=== PATIENT | male | born 1955 | race African-American/Black ===

== ENCOUNTER 2018-06-12 07:32 | Day surgery (SDC) | payer MEDICARE, MEDICAID ==
[~2018-06-12] VITALS: Ht 191.8 cm; Wt 140.6 kg
[~2018-06-12 07:32] MED LIST: ATOR10TA69 PO; LISI10TA5 PO; METF10004 PO; SITA100T11 PO
[2018-06-12] MEDS ORDERED: FENTANYL CITRATE/PF 50MCG/ML 2ML VIAL ONE ×2 (09:57→10:19)
[2018-06-12] MEDS ORDERED: MIDAZOLAM HCL 2 MG/2 ML VIAL ONE (09:57)
[2018-06-12] MEDS ORDERED: PROPOFOL 200MG/20ML VIAL IV ONE ×2 (09:57→10:59)
[2018-06-12] MEDS ORDERED: BACITRACIN ZINC 15GM TUBE TOP ONE (10:00)
[2018-06-12] MEDS ORDERED: HYDROMORPHONE HCL/PF 2MG/ML CPJ IV PRN (11:30)
[2018-06-12] MEDS ORDERED: LABETALOL 5MG/ML SYR 20 MG/4 ML SYRINGE IV PRN (11:30)
[2018-06-12] MEDS ORDERED: ONDANSETRON HCL 4MG/2ML INJ IV PRN (11:30)
[2018-06-12] MEDS ORDERED: MEPERIDINE HCL/PF 25MG/ML CPJ IV PRN (11:30)
== END 2018-06-12 12:45 | disposition home or self-care (01) ==
LOC: OR 07:32
PROVIDERS: ATTEND Urology
DX: N47.1 Phimosis (principal); E11.9 Type 2 diabetes mellitus without complications; E78.00 Pure hypercholesterolemia, unspecified; I10 Essential (primary) hypertension; Z98.890 Other specified postprocedural states; Z79.899 Other long term (current) drug therapy
CPT/HCPCS: 54161; 82962; 88304; J2250; J3010; J7030; J7040; J2704

== ENCOUNTER 2020-06-26 19:54 | Inpatient (IN) | payer MEDICARE, MEDICAID ==
[~2020-06-26] VITALS: Ht 190.5 cm; Wt 136.1 kg
[~2020-06-26 19:54] MED LIST changes: +METF-416 PO; -METF10004 PO
[2020-06-26 21:13] LABS: BG CARBOXYHEMOGLOBIN 0.3 % (0.5-1.5); BG DEOXYHEMOGLOBIN 2.8 % (0.0-5.0); BG FRACTION INSPIRED OXYGEN 21; BG HCO3 ACT 10.4 mmol/L (22.0-26.0); BG METHEMOGLOBIN 0.2 % (0.0-1.5); BG OXYGEN SATURATION 97.2 % (92.0-98.5); BG OXYHEMOGLOBIN 96.7 % (94.0-97.0); BG PCO2 26.8 mmHg (35.0-45.0); BG PH 7.208 (7.350-7.450); BG PO2 105.3 mmHg (75.0-100.0); BG SAMPLE SITE RIGHT RADIAL; BG TOTAL HEMOGLOBIN 11.2 g/dL (12.0-18.0); BG VENT MODE ROOM AIR
[2020-06-26] MEDS ORDERED: SODIUM CHLORIDE 0.9% 1,000 ML IV ONE (21:45)
[2020-06-26 21:58] LABS: BASOPHILS % 0.6 % (0.0-2.0); EOSINOPHILS % 2.1 % (0.0-5.0); HEMATOCRIT. 32.2 % (42.0-52.0); HEMOGLOBIN. 10.6 g/dL (14.0-18.0); LYMPHOCYTES % 17.9 % (20.0-50.0); MEAN CORPUSCULAR HEMOGLOBIN 31.1 pg (28.0-32.0); MEAN CORPUSCULAR VOLUME 93.9 fL (80.0-94.0); MEAN PLATELET VOLUME 8.3 fl (7.4-10.4); MONOCYTES % 9.8 % (2.0-8.0); NEUTROPHILS % 69.6 % (40.0-76.0); PLATELET 277 x1000/uL (130-400); RED BLOOD CELL COUNT 3.43 mill/uL (4.7-6.1); RED CELL DISTRIBUTION WIDTH 13.9 % (11.6-14.6)
[2020-06-26 22:04] LABS: CHLORIDE 117 mEq/L (98-107)
[2020-06-26 22:12] LABS: BETA HYDROXYBUTYRATE 1.2 mMol/L (0.0-0.3)
[2020-06-26] MEDS ORDERED: FUROSEMIDE 100MG/10ML VIAL IV STA (22:19)
[2020-06-26] MEDS ORDERED: DEXTROSE 50% WATER 50ML SYRINGE IV ONE (22:30)
[2020-06-26] MEDS ORDERED: CALCIUM CHLORIDE 1GM/10ML SYR IV ONE (22:30)
[2020-06-26] MEDS ORDERED: INSULIN REGULAR (HUMULIN R) 300UNITS/3ML IV ONE (22:30)
[2020-06-26] MEDS ORDERED: SODIUM BICARBONATE 8.4% 1 MEQ/ML 50ML SYR IV ONE (22:30)
[2020-06-26] MEDS ORDERED: ALBUTEROL (0.083%) 2.5MG/3ML NEB HHN ONE (22:30)
[2020-06-26] MEDS ORDERED: MORPHINE SULFATE 2 MG/ML CPJ (NOT FOR IM USE) IV PRN (22:45)
[2020-06-26] MEDS ORDERED: ACETAMINOPHEN 650MG/20.3ML UDC GT PRN (22:45)
[2020-06-26] MEDS ORDERED: LORAZEPAM 2MG/ML CPJ IV PRN (22:45)
[2020-06-26] MEDS ORDERED: MAGNESIUM/ALUMINUM HYDROXIDE/SIMETHICONE 30ML UDC PO PRN (22:45)
[2020-06-26] MEDS ORDERED: HYDROCODONE/ACETAMINOPHEN 5/325MG TABLET PO PRN (22:45)
[2020-06-26] MEDS ORDERED: ONDANSETRON HCL 4MG/2ML INJ IV PRN (22:45)
[2020-06-26] MEDS ORDERED: CLONIDINE 0.1MG TABLET PO PRN (22:45)
[2020-06-26] MEDS ORDERED: DOCUSATE SODIUM 100MG CAPSULE PO PRN (22:45)
[2020-06-26] MEDS ORDERED: SODIUM CHLORIDE 0.9% 1,000 ML IV SCH (23:00)
[2020-06-26 23:47] LABS: PHOSPHORUS 6.9 mg/dL (2.5-4.9)
[2020-06-27 00:08] LABS: PROSTRATE SPECIFIC AG TOTAL 0.69 ng/mL (0.0-4.0)
[2020-06-27 00:19] LABS: HEPATITIS B SURFACE ANTIGEN NEGATIVE
[2020-06-27 00:28] VITALS: BP 102/46
[2020-06-27] MEDS ORDERED: ATOR20TA65 PO (04:04)
[2020-06-27] MEDS ORDERED: LISI-648 PO (04:04)
[2020-06-27] MEDS: ENOXAPARIN 40MG/0.4ML SYR SUBCUT SCH ×2 (05:22→22:02)
[2020-06-27 05:35] VITALS: BP 93/43
[2020-06-27 06:13] LABS: BASOPHILS % 0.7 % (0.0-2.0); EOSINOPHILS % 1.1 % (0.0-5.0); HEMATOCRIT. 29.6 % (42.0-52.0); HEMOGLOBIN. 9.6 g/dL (14.0-18.0); LYMPHOCYTES % 18.8 % (20.0-50.0); MEAN CORPUSCULAR HEMOGLOBIN 30.5 pg (28.0-32.0); MEAN CORPUSCULAR VOLUME 93.6 fL (80.0-94.0); MEAN PLATELET VOLUME 7.7 fl (7.4-10.4); MONOCYTES % 11.4 % (2.0-8.0); PLATELET 244 x1000/uL (130-400); RED BLOOD CELL COUNT 3.16 mill/uL (4.7-6.1)
[2020-06-27 06:17] LABS: CHLORIDE 117 mEq/L (98-107)
[2020-06-27 06:27] LABS: CREATINE KINASE 187 IU/L (39-308)
[2020-06-27 06:29] LABS: CREATINE KINASE MB FRACTION < 1.0 ng/mL (0.5-3.6)
[2020-06-27 08:00] VITALS: BP 109/56
[2020-06-27] MEDS ORDERED: FUROSEMIDE 100MG/10ML VIAL IVP NR (08:45)
[2020-06-27] MEDS ORDERED: SODIUM POLYSTYRENE SULFONATE 15 G/60 ML BOT PO NR ×2 (09:00→12:00)
[2020-06-27] MEDS: FOLIC ACID 1MG TABLET PO SCH (09:20)
[2020-06-27] MEDS ORDERED: DEXTROSE 50% WATER 50ML SYRINGE IV NR (11:45)
[2020-06-27] MEDS ORDERED: SODIUM BICARBONATE 8.4% 1 MEQ/ML 50ML SYR IV NR (11:45)
[2020-06-27 12:00] VITALS: BP 115/61
[2020-06-27] MEDS ORDERED: PNEUMOCOCCAL 23-VAL P-SAC VAC 0.5 ML IM ONE (12:00)
[2020-06-27] MEDS ORDERED: CALCIUM GLUCONATE 1,000 MG in DEXT 5% WATER 90 ML IV NR (13:00)
[2020-06-27] MEDS ORDERED: INSULIN REGULAR (HUMULIN R) UD 100 UNITS/ML SYR IV NR (13:00)
[2020-06-27 16:00] VITALS: BP 102/59
[2020-06-27] MEDS: CALCIUM ACETATE 667MG CAPSULE PO SCH (17:51)
[2020-06-27] MEDS ORDERED: DEXTROSE 50% WATER 50ML SYRINGE IV PRN (18:45)
[2020-06-27 19:18] LABS: CLARITY URINE CLEAR (CLEAR); COLOR URINE YELLOW (YELLOW); KETONES URINE NEGATIVE (NEGATIVE); LEUKOCYTE ESTERASE URINE NEGATIVE (NEGATIVE); NITRITE URINE NEGATIVE (NEGATIVE); OCCULT BLOOD URINE TRACE (NEGATIVE); PROTEIN URINE NEGATIVE (NEGATIVE); SPECIFIC GRAVITY URINE 1.014 (1.005-1.030); UROBILINOGEN URINE 0.2 E.U./dL (0.2-1.0)
[2020-06-27 19:37] LABS: METHADONE URINE SCREEN NEGATIVE (NEGATIVE); OPIATES URINE SCREEN NEGATIVE (NEGATIVE)
[2020-06-27 19:38] LABS: *AMPHETAMINES SCREEN URINE NEGATIVE (NEGATIVE); *BARBITURATES SCREEN URINE NEGATIVE (NEGATIVE); *BENZODIAZEPINES SCREEN URINE NEGATIVE (NEGATIVE); *COCAINE SCREEN URINE NEGATIVE (NEGATIVE); CANNABINOID URINE SCREEN NEGATIVE (NEGATIVE)
[2020-06-27 19:39] LABS: PHENCYCLIDINE URINE SCREEN NEGATIVE (NEGATIVE)
[2020-06-27 20:00] VITALS: BP 90/48
[2020-06-27] MEDS: BLOOD SUGAR DIAGNOSTIC STRIP TEST SCH (20:19)
[2020-06-27] MEDS: INSULIN LISPRO 100 UNITS/ML SUBCUT SCH (20:19)
[2020-06-27 20:48] LABS: CREATINE KINASE MB FRACTION 1.6 ng/mL (0.5-3.6)
[2020-06-28] VITALS (16 sets, daily range): BP systolic 62–97; BP diastolic 29–88
[2020-06-28] MEDS: BLOOD SUGAR DIAGNOSTIC STRIP TEST SCH ×4 (06:03→20:45)
[2020-06-28] MEDS: INSULIN LISPRO 100 UNITS/ML SUBCUT SCH ×4 (06:15→20:51)
[2020-06-28] MEDS: FOLIC ACID 1MG TABLET PO SCH (08:06)
[2020-06-28] MEDS: CALCIUM ACETATE 667MG CAPSULE PO SCH ×3 (08:07→17:45)
[2020-06-28 10:26] LABS: BASOPHILS % 0.8 % (0.0-2.0); EOSINOPHILS % 3.9 % (0.0-5.0); HEMATOCRIT. 28.8 % (42.0-52.0); HEMOGLOBIN. 9.8 g/dL (14.0-18.0); LYMPHOCYTES % 18.1 % (20.0-50.0); MEAN CORPUSCULAR HEMOGLOBIN 31.1 pg (28.0-32.0); MEAN CORPUSCULAR VOLUME 91.1 fL (80.0-94.0); MEAN PLATELET VOLUME 7.8 fl (7.4-10.4); MONOCYTES % 13.5 % (2.0-8.0); NEUTROPHILS % 63.7 % (40.0-76.0); PLATELET 232 x1000/uL (130-400); RED BLOOD CELL COUNT 3.16 mill/uL (4.7-6.1); RED CELL DISTRIBUTION WIDTH 14.1 % (11.6-14.6)
[2020-06-28 10:30] LABS: CHLORIDE 109 mEq/L (98-107)
[2020-06-28 10:36] LABS: PHOSPHORUS 6.1 mg/dL (2.5-4.9)
[2020-06-28 10:39] LABS: CREATINE KINASE 178 IU/L (39-308)
[2020-06-28 10:42] LABS: CREATINE KINASE MB FRACTION < 1.0 ng/mL (0.5-3.6)
[2020-06-28] MEDS: MIDODRINE HCL 5MG TABLET PO SCH ×2 (15:45→20:44)
[2020-06-28] MEDS ORDERED: SODIUM CHLORIDE 0.9% 250 ML IV NR (15:45)
[2020-06-29] VITALS (11 sets, daily range): BP systolic 89–138; BP diastolic 48–81
[2020-06-29] MEDS: INSULIN LISPRO 100 UNITS/ML SUBCUT SCH ×5 (06:00→21:00)
[2020-06-29] MEDS: BLOOD SUGAR DIAGNOSTIC STRIP TEST SCH ×4 (06:00→21:05)
[2020-06-29 06:52] LABS: PARTIAL THROMBOPLASTIN TIME 24.7 sec (23.4-31.0); PROTHROMBIN TIME 10.7 sec (9.6-11.0)
[2020-06-29 06:57] LABS: BASOPHILS % 0.8 % (0.0-2.0); EOSINOPHILS % 4.8 % (0.0-5.0); HEMATOCRIT. 26.4 % (42.0-52.0); HEMOGLOBIN. 8.9 g/dL (14.0-18.0); LYMPHOCYTES % 23.7 % (20.0-50.0); MEAN CORPUSCULAR HEMOGLOBIN 30.9 pg (28.0-32.0); MEAN CORPUSCULAR VOLUME 92.1 fL (80.0-94.0); MEAN PLATELET VOLUME 8.4 fl (7.4-10.4); MONOCYTES % 12.9 % (2.0-8.0); NEUTROPHILS % 57.8 % (40.0-76.0); PLATELET 202 x1000/uL (130-400); RED BLOOD CELL COUNT 2.87 mill/uL (4.7-6.1)
[2020-06-29] MEDS: CALCIUM ACETATE 667MG CAPSULE PO SCH ×3 (07:15→16:50)
[2020-06-29 07:22] LABS: HEPATITIS B SURFACE ANTIGEN NEGATIVE
[2020-06-29] MEDS ORDERED: CEFAZOLIN 1000MG PREMIX 50 ML IV NR (07:30)
[2020-06-29 07:50] LABS: HEPATITIS A AB IGM NEGATIVE (NEGATIVE)
[2020-06-29] MEDS: MIDODRINE HCL 5MG TABLET PO SCH ×3 (08:11→16:50)
[2020-06-29] MEDS: FOLIC ACID 1MG TABLET PO SCH (08:11)
[2020-06-29] MEDS ORDERED: LIDOCAINE HCL 1% 20ML VIAL (Pyxis) INJ ONE (08:20)
[2020-06-29] MEDS ORDERED: SODIUM BICARBONATE 4% (2.4MEQ) 5ML VIAL IV ONE (08:20)
[2020-06-29] MEDS ORDERED: CEFAZOLIN 1000MG PREMIX 50 ML IV ONE (08:28)
[2020-06-29] MEDS ORDERED: FENTANYL CITRATE/PF 50MCG/ML 2ML VIAL ONE (08:29)
[2020-06-29] MEDS: ENOXAPARIN 40MG/0.4ML SYR SUBCUT SCH (23:23)
[2020-06-30] VITALS: BP_SYST 90; BP_SYST 92; BP_DIAS 48; BP_DIAS 63
[2020-06-30 04:00] VITALS: BP 105/58
[2020-06-30] MEDS: INSULIN LISPRO 100 UNITS/ML SUBCUT SCH ×4 (06:15→21:40)
[2020-06-30] MEDS: BLOOD SUGAR DIAGNOSTIC STRIP TEST SCH ×4 (06:15→21:39)
[2020-06-30] MEDS: CALCIUM ACETATE 667MG CAPSULE PO SCH ×3 (06:15→16:58)
[2020-06-30 06:20] LABS: BASOPHILS % 0.6 % (0.0-2.0); EOSINOPHILS % 5.1 % (0.0-5.0); HEMATOCRIT. 27.1 % (42.0-52.0); HEMOGLOBIN. 9.2 g/dL (14.0-18.0); LYMPHOCYTES % 21.8 % (20.0-50.0); MEAN CORPUSCULAR HEMOGLOBIN 31.1 pg (28.0-32.0); MEAN PLATELET VOLUME 8.6 fl (7.4-10.4); MONOCYTES % 11.3 % (2.0-8.0); NEUTROPHILS % 61.2 % (40.0-76.0); PLATELET 182 x1000/uL (130-400); RED BLOOD CELL COUNT 2.94 mill/uL (4.7-6.1); RED CELL DISTRIBUTION WIDTH 13.4 % (11.6-14.6)
[2020-06-30 08:00] VITALS: BP 90/47
[2020-06-30] MEDS: MIDODRINE HCL 5MG TABLET PO SCH ×3 (08:41→16:58)
[2020-06-30] MEDS: FOLIC ACID 1MG TABLET PO SCH (08:41)
[2020-06-30 12:00] VITALS: BP 84/47
[2020-06-30 16:00] VITALS: BP 89/54
[2020-06-30 20:00] VITALS: BP_SYST 69; BP_SYST 73; BP_SYST 75; BP_DIAS 42; BP_DIAS 44; BP_DIAS 45
[2020-06-30] MEDS: ENOXAPARIN 40MG/0.4ML SYR SUBCUT SCH (21:55)
[2020-06-30] MEDS ORDERED: MIDODRINE HCL 5MG TABLET PO SCH (23:00)
[2020-07-01] VITALS (8 sets, daily range): BP systolic 74–94; BP diastolic 36–53
[2020-07-01] MEDS: BLOOD SUGAR DIAGNOSTIC STRIP TEST SCH ×4 (06:10→20:52)
[2020-07-01 06:19] LABS: BASOPHILS % 0.7 % (0.0-2.0); EOSINOPHILS % 5.3 % (0.0-5.0); HEMATOCRIT. 26.8 % (42.0-52.0); LYMPHOCYTES % 22.6 % (20.0-50.0); MEAN CORPUSCULAR HEMOGLOBIN 30.9 pg (28.0-32.0); MEAN PLATELET VOLUME 8.5 fl (7.4-10.4); NEUTROPHILS % 58.4 % (40.0-76.0); PLATELET 175 x1000/uL (130-400); RED BLOOD CELL COUNT 2.92 mill/uL (4.7-6.1); RED CELL DISTRIBUTION WIDTH 13.3 % (11.6-14.6)
[2020-07-01] MEDS: INSULIN LISPRO 100 UNITS/ML SUBCUT SCH ×4 (06:27→21:49)
[2020-07-01] MEDS: CALCIUM ACETATE 667MG CAPSULE PO SCH ×3 (06:28→17:33)
[2020-07-01] MEDS: MIDODRINE HCL 5MG TABLET PO SCH ×3 (09:57→17:33)
[2020-07-01] MEDS: FOLIC ACID 1MG TABLET PO SCH (09:57)
[2020-07-01] MEDS: ENOXAPARIN 40MG/0.4ML SYR SUBCUT SCH (21:49)
[2020-07-02] VITALS: BP 99/52
[2020-07-02 04:00] VITALS: BP 123/82
[2020-07-02] MEDS: BLOOD SUGAR DIAGNOSTIC STRIP TEST SCH ×2 (06:33→10:53)
[2020-07-02] MEDS: INSULIN LISPRO 100 UNITS/ML SUBCUT SCH ×2 (06:33→12:14)
[2020-07-02 07:00] LABS: BASOPHILS % 0.8 % (0.0-2.0); HEMATOCRIT. 25.7 % (42.0-52.0); HEMOGLOBIN. 8.8 g/dL (14.0-18.0); LYMPHOCYTES % 23.2 % (20.0-50.0); MEAN CORPUSCULAR VOLUME 90.3 fL (80.0-94.0); MEAN PLATELET VOLUME 8.6 fl (7.4-10.4); MONOCYTES % 10.9 % (2.0-8.0); NEUTROPHILS % 61.1 % (40.0-76.0); PLATELET 174 x1000/uL (130-400); RED BLOOD CELL COUNT 2.84 mill/uL (4.7-6.1); RED CELL DISTRIBUTION WIDTH 13.6 % (11.6-14.6)
[2020-07-02 08:00] VITALS: BP 98/58
[2020-07-02] MEDS: FOLIC ACID 1MG TABLET PO SCH (08:54)
[2020-07-02] MEDS: MIDODRINE HCL 5MG TABLET PO SCH ×2 (08:54→12:11)
[2020-07-02] MEDS: CALCIUM ACETATE 667MG CAPSULE PO SCH ×2 (08:54→12:11)
[2020-07-02 12:00] VITALS: BP_SYST 75; BP_SYST 76; BP_SYST 80; BP_DIAS 34; BP_DIAS 50; BP_DIAS 51
[2020-07-02 15:08] VITALS: BP 80/50
[2020-07-02 16:00] VITALS: BP 92/59
[2020-07-02] MEDS ORDERED: LACTULOSE 20G/30ML UDC PO SCH (17:00)
[2020-07-02] MEDS ORDERED: FOLI-43 PO (17:27)
[2020-07-02] MEDS ORDERED: MIDO5TAB4 PO (17:27)
[2020-07-02] MEDS ORDERED: CALC667C PO (17:27)
== END 2020-07-02 18:20 | disposition home or self-care (01) | DRG 280 ==
LOC: ER 19:54 → 7EST 23:03 → CANRESERV 23:17 → ENRESERV 23:17 → 5WST 06-27 21:45
PROVIDERS: ADMIT Internal Medicine Nephrology; ATTEND Internal Medicine Nephrology
PROC: 02HV33Z Insertion of Infusion Device into Superior Vena Cava, Percutaneous Approach (ICD-10-PCS; 2020-06-27)
PROC: B548ZZA Ultrasonography of Superior Vena Cava, Guidance (ICD-10-PCS; 2020-06-27)
PROC: 02PY33Z Removal of Infusion Device from Great Vessel, Percutaneous Approach (ICD-10-PCS; 2020-06-27)
PROC: 0JH63XZ Insertion of Tunneled Vascular Access Device into Chest Subcutaneous Tissue and Fascia, Percutaneous Approach (ICD-10-PCS; principal; 2020-06-29)
PROC: 02HV33Z Insertion of Infusion Device into Superior Vena Cava, Percutaneous Approach (ICD-10-PCS; 2020-06-29)
PROC: B5181ZA Fluoroscopy of Superior Vena Cava using Low Osmolar Contrast, Guidance (ICD-10-PCS; 2020-06-29)
DX: I13.2 Hypertensive heart and chronic kidney disease with heart failure and with stage 5 chronic kidney disease, or end stage renal disease (principal); I21.A1 Myocardial infarction type 2; I50.31 Acute diastolic (congestive) heart failure; N18.6 End stage renal disease; E87.2 Acidosis; N17.9 Acute kidney failure, unspecified; E11.22 Type 2 diabetes mellitus with diabetic chronic kidney disease; E87.8 Other disorders of electrolyte and fluid balance, not elsewhere classified; E87.5 Hyperkalemia; E83.39 Other disorders of phosphorus metabolism; D64.9 Anemia, unspecified; E66.9 Obesity, unspecified; E78.00 Pure hypercholesterolemia, unspecified; E78.5 Hyperlipidemia, unspecified; I95.1 Orthostatic hypotension; Z68.37 Body mass index [BMI] 37.0-37.9, adult; Z99.2 Dependence on renal dialysis; Z79.84 Long term (current) use of oral hypoglycemic drugs; Z79.899 Other long term (current) drug therapy; R00.1 Bradycardia, unspecified
CPT/HCPCS: 36415; 36558; 36589; 36600; 71045; 76770; 76937; 77001; 80048; 80053; 80061; 80305; 81003; 82010; 82375; 82550; 82553; 82805; 82962; 83036; 83735; 83880; 83970; 84100; 84145; 84153; 84443; 84484; 85025; 86705; 86709; 86803; 87340; 87635; 90732; 93005; 93306; 94640; 97162; 97166; 97530; 97535; 99291; C1750; C1752; C1769; J0610; J0690; J1642; J1650; J1815; J1940; J3010; J3490; J7030; J7060; G0103; U0003-CS

== ENCOUNTER 2020-08-16 10:11 | Inpatient (IN) | payer MEDICARE, MEDICAID ==
[~2020-08-16] VITALS: Ht 193 cm; Wt 118.8 kg
[~2020-08-16 10:11] MED LIST changes: -ATOR10TA69 PO; +ATOR20TA65 PO; +CALC667C PO; +FOLI-43 PO; -LISI10TA5 PO; -METF-416 PO; +METO25TA6 PO; -SITA100T11 PO
[2020-08-16 12:22] LABS: EOSINOPHILS % 4.5 % (0.0-5.0); HEMATOCRIT. 29.7 % (42.0-52.0); HEMOGLOBIN. 9.9 g/dL (14.0-18.0); LYMPHOCYTES % 14.5 % (20.0-50.0); MEAN CORPUSCULAR VOLUME 93.4 fL (80.0-94.0); MEAN PLATELET VOLUME 7.4 fl (7.4-10.4); MONOCYTES % 5.9 % (2.0-8.0); NEUTROPHILS % 74.1 % (40.0-76.0); PLATELET 311 x1000/uL (130-400); RED BLOOD CELL COUNT 3.18 mill/uL (4.7-6.1); RED CELL DISTRIBUTION WIDTH 14.5 % (11.6-14.6)
[2020-08-16 12:40] LABS: CHLORIDE 98 mEq/L (98-107)
[2020-08-16 12:47] LABS: PROTHROMBIN TIME 10.7 sec (9.6-11.0)
[2020-08-16 14:22] LABS: AMYLASE 159 IU/L (25-115)
[2020-08-16] MEDS ORDERED: ONDANSETRON HCL 4MG/2ML INJ IV PRN (14:45)
[2020-08-16] MEDS ORDERED: ACETAMINOPHEN 325MG TABLET PO PRN (14:45)
[2020-08-16] MEDS ORDERED: MORPHINE SULFATE 2 MG/ML CPJ (NOT FOR IM USE) IV PRN (14:45)
[2020-08-16] MEDS: METOPROLOL TARTRATE 25MG TABLET PO SCH (21:50)
[2020-08-17 05:05] VITALS: BP 127/84
[2020-08-17 05:24] VITALS: BP 127/84
[2020-08-17 08:11] LABS: BASOPHILS % 1.1 % (0.0-2.0); EOSINOPHILS % 5.3 % (0.0-5.0); HEMATOCRIT. 28.7 % (42.0-52.0); HEMOGLOBIN. 9.6 g/dL (14.0-18.0); LYMPHOCYTES % 16.3 % (20.0-50.0); MEAN CORPUSCULAR HEMOGLOBIN 31.1 pg (28.0-32.0); MEAN CORPUSCULAR VOLUME 93.3 fL (80.0-94.0); MEAN PLATELET VOLUME 7.4 fl (7.4-10.4); NEUTROPHILS % 68.3 % (40.0-76.0); PLATELET 298 x1000/uL (130-400); RED BLOOD CELL COUNT 3.08 mill/uL (4.7-6.1); RED CELL DISTRIBUTION WIDTH 14.4 % (11.6-14.6)
[2020-08-17 08:36] VITALS: BP 109/44
[2020-08-17] MEDS: METOPROLOL TARTRATE 25MG TABLET PO SCH ×2 (09:00→21:00)
[2020-08-17] MEDS ORDERED: MIDO10TA MT (10:57)
[2020-08-17] MEDS ORDERED: METF-416 MT (10:57)
[2020-08-17] MEDS ORDERED: *PATIENT'S OWN MEDICATION STORAGE XX SCH (11:15)
[2020-08-17 12:15] VITALS: BP 150/81
[2020-08-17 16:06] VITALS: BP 133/74
[2020-08-17 20:42] VITALS: BP 149/85
[2020-08-18 00:27] VITALS: BP 131/71
[2020-08-18 04:00] VITALS: BP 134/84
[2020-08-18 07:34] LABS: EOSINOPHILS % 4.5 % (0.0-5.0); HEMATOCRIT. 29.7 % (42.0-52.0); HEMOGLOBIN. 10.1 g/dL (14.0-18.0); LYMPHOCYTES % 17.1 % (20.0-50.0); MEAN CORPUSCULAR HEMOGLOBIN 31.2 pg (28.0-32.0); MEAN PLATELET VOLUME 7.2 fl (7.4-10.4); MONOCYTES % 8.9 % (2.0-8.0); NEUTROPHILS % 68.5 % (40.0-76.0); PLATELET 263 x1000/uL (130-400); RED BLOOD CELL COUNT 3.23 mill/uL (4.7-6.1); RED CELL DISTRIBUTION WIDTH 14.5 % (11.6-14.6)
[2020-08-18 08:00] VITALS: BP 114/71
[2020-08-18 08:07] LABS: CHLORIDE 99 mEq/L (98-107)
[2020-08-18] MEDS: METOPROLOL TARTRATE 25MG TABLET PO SCH ×2 (09:51→21:00)
[2020-08-18 12:00] VITALS: BP 107/75
[2020-08-18] MEDS ORDERED: BUPIVACAINE HCL/PF 0.5% (5MG/ML) 10ML ONE (15:07)
[2020-08-18] MEDS ORDERED: BACITRACIN 50,000 UNITS/VIAL ONE (15:07)
[2020-08-18] MEDS ORDERED: LIDOCAINE HCL 1% 20ML VIAL (Pyxis) INJ ONE (15:07)
[2020-08-18 16:00] VITALS: BP 131/69
[2020-08-18] MEDS ORDERED: SKIN ADHESIVE 0.7 GM EA TOP ONE (18:18)
[2020-08-18] MEDS ORDERED: FENTANYL CITRATE/PF 50MCG/ML 2ML VIAL ONE ×2 (19:25→21:30)
[2020-08-18] MEDS ORDERED: MIDAZOLAM HCL 2 MG/2 ML VIAL ONE (19:25)
[2020-08-18] MEDS ORDERED: ETOMIDATE 2MG/ML 10ML VIAL IV ONE (19:26)
[2020-08-18] MEDS ORDERED: SUCCINYLCHOLINE CHLORIDE 200MG/10ML IV ONE (19:27)
[2020-08-18] MEDS ORDERED: ROCURONIUM BROMIDE 10MG/ML VIAL 5ML IV ONE ×2 (19:27→20:18)
[2020-08-18] MEDS ORDERED: ESMOLOL HCL 10MG/ML 10ML VIAL IV ONE (19:38)
[2020-08-18] MEDS ORDERED: LABETALOL HCL 5MG/ML VIAL 20ML IV ONE (19:40)
[2020-08-18] MEDS ORDERED: EPHEDRINE SULFATE 50MG/ML VIAL ONE (20:03)
[2020-08-18] MEDS ORDERED: CEFAZOLIN SODIUM 1000MG/VIAL ONE (20:13)
[2020-08-18] MEDS ORDERED: NEOSTIGMINE METHYLSULFATE 1MG/ML 10 ML VIAL ONE (21:08)
[2020-08-18] MEDS ORDERED: ATROPINE SULFATE 1MG/10ML SYR ONE (21:08)
[2020-08-18] MEDS ORDERED: MORPHINE SULFATE 4 MG/ML CPJ (NOT FOR IM USE) IV PRN (21:15)
[2020-08-18] MEDS ORDERED: ONDANSETRON HCL 4MG/2ML INJ ONE (21:33)
[2020-08-18] MEDS ORDERED: DEXAMETHASONE 4MG/ML 1ML VIAL ONE (21:34)
[2020-08-18] MEDS ORDERED: HYDROMORPHONE HCL/PF 2MG/ML CPJ IV PRN (21:45)
[2020-08-18] MEDS ORDERED: HEPARIN SODIUM 1,000 UNIT/1ML VIAL IV SCH (22:00)
[2020-08-19 00:31] VITALS: BP 133/73
[2020-08-19 04:00] VITALS: BP 118/71
[2020-08-19 08:00] VITALS: BP 105/57
[2020-08-19] MEDS: METOPROLOL TARTRATE 25MG TABLET PO SCH ×2 (09:00→20:59)
[2020-08-19 12:00] VITALS: BP 110/69
[2020-08-19 16:00] VITALS: BP 136/67
[2020-08-19] MEDS: HYDROCODONE/ACETAMINOPHEN 10/325MG TABLET PO PRN (17:01)
[2020-08-19] MEDS: BENZONATATE 100MG CAPSULE PO PRN (17:31)
[2020-08-19 20:43] VITALS: BP 113/66
[2020-08-20 00:14] VITALS: BP 95/59
[2020-08-20] MEDS: BENZONATATE 100MG CAPSULE PO PRN (01:57)
[2020-08-20 04:00] VITALS: BP 114/67
[2020-08-20 07:37] LABS: CHLORIDE 103 mEq/L (98-107)
[2020-08-20 07:45] LABS: BASOPHILS % 0.6 % (0.0-2.0); EOSINOPHILS % 1.9 % (0.0-5.0); HEMATOCRIT. 27.7 % (42.0-52.0); HEMOGLOBIN. 9.2 g/dL (14.0-18.0); LYMPHOCYTES % 17.4 % (20.0-50.0); MEAN CORPUSCULAR VOLUME 93.4 fL (80.0-94.0); MEAN PLATELET VOLUME 7.4 fl (7.4-10.4); NEUTROPHILS % 70.1 % (40.0-76.0); PLATELET 201 x1000/uL (130-400); RED BLOOD CELL COUNT 2.97 mill/uL (4.7-6.1); RED CELL DISTRIBUTION WIDTH 14.4 % (11.6-14.6)
[2020-08-20 08:00] VITALS: BP 106/62
[2020-08-20] MEDS: METOPROLOL TARTRATE 25MG TABLET PO SCH (09:19)
[2020-08-20] MEDS: HYDROCODONE/ACETAMINOPHEN 10/325MG TABLET PO PRN (09:20)
[2020-08-20] MEDS ORDERED: HYDR-4001 MT (11:55)
[2020-08-20 16:27] VITALS: BP 90/62
[2020-08-20 20:00] VITALS: BP 127/85
== END 2020-08-20 19:00 | disposition home or self-care (01) | DRG 417 ==
LOC: ER 10:35 → MICUSO 14:22 → EDBEDREQTM 14:40 → EDBEDREQ 14:40 → 6WST 08-17 03:02
PROVIDERS: ADMIT Internal Medicine Nephrology; ATTEND Internal Medicine Nephrology
PROC: 0FT44ZZ Resection of Gallbladder, Percutaneous Endoscopic Approach (ICD-10-PCS; principal; 2020-08-18)
PROC: 5A1D70Z Performance of Urinary Filtration, Intermittent, Less than 6 Hours Per Day (ICD-10-PCS; 2020-08-19)
DX: K85.10 Biliary acute pancreatitis without necrosis or infection (principal); N18.6 End stage renal disease; E66.9 Obesity, unspecified; K52.9 Noninfective gastroenteritis and colitis, unspecified; E78.5 Hyperlipidemia, unspecified; Z20.828 Contact with and (suspected) exposure to other viral communicable diseases; D64.9 Anemia, unspecified; E78.00 Pure hypercholesterolemia, unspecified; K82.8 Other specified diseases of gallbladder; Z99.2 Dependence on renal dialysis; Z82.49 Family history of ischemic heart disease and other diseases of the circulatory system; Z79.899 Other long term (current) drug therapy; Z68.31 Body mass index [BMI] 31.0-31.9, adult; Z86.39 Personal history of other endocrine, nutritional and metabolic disease
CPT/HCPCS: 36415; 71045; 74181; 76705; 78227; 80048; 80053; 80061; 82150; 82962; 84484; 85025; 87426; 88304; 93005; 99285; A9537; J0330; J0461; J0690; J1100; J1170; J1644; J2250; J2405; J2710; J3010; J3490; J7030